=== PATIENT | male | born 1945 | race Caucasian/White ===

== ENCOUNTER → 2023-02-21 | Outpatient (CLI) | payer MEDICARE ==
[2023-02-21 09:51] LABS: African American GFR (CKD) 87 (>60 ml/min/1.73 sqM); Blood Urea Nitrogen 34 mg/dL (9-20); Non-African American GFR(CKD) 75 (>60 ml/min/1.73 sqM)
--- NOTE | 2023-02-21 10:59 | CT ---
EXAMINATION TYPE: CT urogram wo/w con DATE OF EXAM: 02/21/2023 COMPARISON: 01/21/1950 HISTORY: Microhematuria and frequent urination. CT DLP: 2550.2 mGycm CONTRAST: Performed and without and with IV Contrast, patient injected with 100ml mL of Isovue 300. CT Urography was performed with unenhanced followed by enhanced images of the kidneys, ureters and ur inary bladder. Delayed images were obtained. 3d reconstruction was performed at a separate work sta tion. FINDINGS: KIDNEYS/BLADDER: No hydronephrosis. No nephrolithiasis. No distinct solid renal mass. Simple cyst midpole left kidney measures 3.7 cm. Urinary bladder is not ideally distended however there does appe ar to be some wall thickening throughout which may reflect underlying cystitis. No distinct mass lesi on. LUNG BASES-: No visible nodule. No infiltrate. Mild basilar fibrotic change. LIVER/GB: No calcified gallstones. No space occupying hepatic lesion. Biliary tree is of normal ca liber. PANCREAS: No inflammation. No distinct mass. SPLEEN: No splenic enlargement. No lesion seen. ADRENALS: No nodule. No thickening. BOWEL: Normal appendix. Normal bowel caliber. No inflammation. GENITAL ORGANS: No gross abnormality. LYMPH NODES: No greater than 1cm abdominal or pelvic lymph nodes are appreciated. AORTA: No significant abnormality. OSSEOUS STRUCTURES: No significant abnormality is seen. OTHER: No significant additional abnormality is seen. IMPRESSION: 1. Correlate for urinary bladder cystitis. No distinct mass appreciated. Correlate clinically. 2. Simple cyst midpole left kidney. No solid renal lesions are seen. No hydronephrosis or nephrolithi asis present.
== END | disposition home or self-care (01) ==
LOC: RADCTMAIN 09:17
PROVIDERS: ATTEND Urology
DX: R31.1 Benign essential microscopic hematuria (principal); N28.1 Cyst of kidney, acquired
CPT/HCPCS: 82565; 84520; 74178; 36415; 74400; Q9967

== ENCOUNTER 2024-03-11 03:01 | Emergency (ER) | payer MEDICARE ==
[2024-03-11 03:12] VITALS: RESP 16; TEMP 96.1
--- NOTE | 2024-03-11 03:26 | ED ---
General Adult HPI - General Chief complaint: Urogenital Stated complaint: Bladder Issues Time Seen by Provider: 03/11/24 03:13 Source: patient, EMS, RN notes reviewed, old records reviewed Mode of arrival: EMS Limitations: no limitations - History of Present Illness Initial comments: 78-year-old male presenting with hematuria and difficulty urinating. Patient states he has had hematuria throughout the week after a bladder biopsy 6 days prior. Patient is on Eliquis which she states he takes for atrial fibrillation. He has been taking this medication this week. Patient has lower abdominal discomfort. No fever. No vomiting. - Related Data Home Medications Medication Instructions Recorded Confirmed Metoprolol Tartrate [Lopressor] 25 mg PO BID 01/08/16 01/12/16 Multivitamins, Thera [Multivitamin] 1 tab PO DAILY 01/08/16 01/12/16 [place]-3 Fatty Acids/Fish Oil [Fish 1 each PO DAILY 01/08/16 01/12/16 Oil 1,000 mg Softgel] Pantoprazole Sodium 40 mg PO DAILY 01/08/16 01/12/16 hydroCHLOROthiazide 12.5 mg PO DAILY 01/08/16 01/12/16 lisinopriL [Zestril] 10 mg PO DAILY 01/08/16 01/12/16 Allergies Allergy/AdvReac Type Severity Reaction Status Date / Time No Known Allergies Allergy Verified 03/11/24 03:12 Review of Systems ROS Statement: Those systems with pertinent positive or pertinent negative responses have been documented in the HPI. ROS Other: All systems not noted in ROS Statement are negative. Past Medical History Past Medical History: GERD/Reflux, Hypertension, Osteoarthritis (OA) Additional Past Medical History / Comment(s): HX OF HEPATITIS C WITH TREATMENT. , PT STATES HE WAS HAVING STOMACH CRAMPS AND NAUSEA BUT IT HAS SUBSIDED NOW. History of Any Multi-Drug Resistant Organisms: None Reported Past Surgical History: Joint Replacement, Orthopedic Surgery Additional Past Surgical History / Comment(s): LEFT TOTAL KNEE, RIGHT KNEE SURG, PITUITARY TUMOR (2014-), TWISTED BOWEL SURGERY (1996). Bladder biopsy 03/05/2024 Past Anesthesia/Blood Transfusion Reactions: No Reported Reaction, Motion Sickness Past Psychological History: No Psychological Hx Reported Past Alcohol Use History: None Reported Past Drug Use History: None Reported - Past Family History Father Family Medical History: Cancer Additional Family Medical History / Comment(s): COLON CANCER Brother(s) Family Medical History: Cancer Additional Family Medical History / Comment(s): STOMACH CANCER General Exam General appearance: alert, in no apparent distress Head exam: Present: atraumatic, normocephalic Eye exam: Present: normal appearance, PERRL ENT exam: Present: normal exam Neck exam: Present: normal inspection. Absent: tenderness, meningismus Respiratory exam: Present: normal lung sounds bilaterally. Absent: respiratory distress, wheezes Cardiovascular Exam: Present: regular rate, normal rhythm GI/Abdominal exam: Present: soft, distended, tenderness. Absent: guarding Neurological exam: Present: alert, oriented X3 Psychiatric exam: Present: normal affect, normal mood Skin exam: Present: warm, dry, intact Course Vital Signs 03/11/24 03:05 Temperature 96.1 F L Pulse Rate 63 Respiratory 16 Rate Blood Pressure 154/94 O2 Sat by Pulse 99 Oximetry Medical Decision Making - Medical Decision Making Was pt. sent in by a medical professional or institution (, [facility], [employer], urgent care, hospital, or fci...) When possible be specific @ -No Did you speak to anyone other than the patient for history (EMS, parent, family, police, friend...)? What history was obtained from this source @ -No Did you review nursing and triage notes (agree or disagree)? Why? @ -I reviewed and agree with nursing and triage notes Were old charts reviewed (outside hosp., previous admission, EMS record, old EK G, old radiological studies, urgent care reports/EKG's, fci records)? Report findings @ -No old charts were reviewed Differential Diagnosis urinary retention secondary to hematuria status post bladder biopsy. EKG interpreted by me (3pts min.). @ -As above X-rays interpreted by me (1pt min.). @ -None done CT interpreted by me (1pt min.). @ -None done U/S interpreted by me (1pt. min.). @ -None done What testing was considered but not performed or refused? (CT, X-rays, U/S, labs)? Why? @ -None What meds were considered but not given or refused? Why? @ -None Did you discuss the management of the patient with other professionals (professionals i.e. , [facility], [employer], lab, RT, psych nurse, clinical social work therapist, door to door selling distributor, teacher, business enterprise officer, disability case manager)? Give summary @ -No Was smoking cessation discussed for >3mins.? @ -No Was critical care preformed (if so, how long)? @ -No Were there social determinants of health that impacted care today? How? (Homelessness, low income, unemployed, alcoholism, drug addiction, transportation, low edu. Level, literacy, decrease access to med. care, senior living, rehab)? @ -No Was there de-escalation of care discussed even if they declined (Discuss DNR or withdrawal of care, Hospice)? DNR status @ -No What co-morbidities impacted this encounter? (DM, HTN, Smoking, COPD, CAD, Cancer, CVA, ARF, Chemo, Hep., AIDS, mental health diagnosis, sleep apnea, morbid obesity)? @Atrial fibrillation on Eliquis Was patient admitted / discharged? Hospital course, mention meds given and route, prescriptions, significant lab abnormalities, going to OR and other pertinent info. @ -78-year-old male with hematuria and urinary retention. Patton catheter was placed and significant amount of clots were irrigated from the bladder. Patient has complete resolution in lower abdominal discomfort. He states he will follow-up with urology on Tuesday which is tomorrow. He will hold his Eliquis for the next 24 hours. CBC unremarkable Undiagnosed new problem with uncertain prognosis? @ -No Drug Therapy requiring intensive monitoring for toxicity (Heparin, Nitro, Insulin, Cardizem)? @ -No Were any procedures done? @ -No Diagnosis/symptom? @ -Urinary retention secondary to hematuria Acute, or Chronic, or Acute on Chronic? @ -Acute Uncomplicated (without systemic symptoms) or Complicated (systemic symptoms)? @ -Default Side effects of treatment? @ -No Exacerbation, Progression, or Severe Exacerbation? @ -No Poses a threat to life or bodily function? How? (Chest pain, [place], [place], pneumonia, PE, COPD, DKA, ARF, appy, cholecystitis, CVA, Diverticulitis, Homicidal, Suicidal, threat to staff... and all critical care pts) @ -No - Lab Data Result diagrams: 03/11/24 03:56 03/11/24 03:56 Lab Results 03/11/24 03/11/24 03/11/24 Range/Units 03:56 03:56 03:56 WBC 6.7 (3.8-10.6) k/uL RBC 4.57 (4.30-5.90) m/uL Hgb 14.2 (13.0-17.5) gm/dL Hct 43.3 (39.0-53.0) % MCV 94.6 (80.0-100.0) fL MCH 31.1 (25.0-35.0) pg MCHC 32.9 (31.0-37.0) g/dL RDW 12.5 (11.5-15.5) % Plt Count 159 (150-450) k/uL MPV 9.2 Neutrophils % 68 % Lymphocytes % 19 % Monocytes % 8 % Eosinophils % 3 % Basophils % 1 % Neutrophils # 4.5 (1.3-7.7) k/uL Lymphocytes # 1.3 (1.0-4.8) k/uL Monocytes # 0.5 (0-1.0) k/uL Eosinophils # 0.2 (0-0.7) k/uL Basophils # 0.0 (0-0.2) k/uL PT 11.7 (10.0-12.5) sec INR 1.1 (<1.2) APTT 26.5 (22.0-30.0) sec Sodium 137 (137-145) mmol/L Potassium 4.1 (3.5-5.1) mmol/L Chloride 105 (98-107) mmol/L Carbon Dioxide 23 (22-30) mmol/L Anion Gap 9 mmol/L BUN 36 H (9-20) mg/dL Creatinine 0.98 (0.66-1.25) mg/dL Est GFR (CKD-EPI)AfAm 85 (>60 ml/min/1.73 sqM) Est GFR (CKD-EPI)NonAf 73 (>60 ml/min/1.73 sqM) Glucose 130 H (74-99) mg/dL Calcium 9.5 (8.4-10.2) mg/dL Total Bilirubin 0.7 (0.2-1.3) mg/dL AST 35 (17-59) U/L ALT 22 (4-49) U/L Alkaline Phosphatase 78 (38-126) U/L Total Protein 6.7 (6.3-8.2) g/dL Albumin 4.3 (3.5-5.0) g/dL Disposition Clinical Impression: Gross hematuria, Acute retention of urine Disposition: HOME SELF-CARE Condition: Good Instructions (If sedation given, give patient instructions): Urinary Retention in Men (ED), Hematuria (ED) Is patient prescribed a controlled substance at d/c from ED?: No Referrals: Alberto Herbert MD [Primary Care Provider] - 1-2 days Will Ruiz MD [STAFF PHYSICIAN] - 1-2 days Time of Disposition: 04:10
[2024-03-11 04:04] LABS: Basophils % (A) 1 %; Eosinophils # (A) 0.2 k/uL (0-0.7); Eosinophils % (A) 3 %; HCT 43.3 % (39.0-53.0); HGB 14.2 gm/dL (13.0-17.5); Lymphocytes # (A) 1.3 k/uL (1.0-4.8); Lymphocytes % (A) 19 %; MCH 31.1 pg (25.0-35.0); MCHC 32.9 g/dL (31.0-37.0); MCV 94.6 fL (80.0-100.0); Mean Platelet Volume 9.2; Monocytes # (A) 0.5 k/uL (0-1.0); Monocytes % (A) 8 %; Neutrophils # (A) 4.5 k/uL (1.3-7.7); Neutrophils % (A) 68 %; Platelet Count 159 k/uL (150-450); RBC 4.57 m/uL (4.30-5.90); RDW 12.5 % (11.5-15.5); WBC 6.7 k/uL (3.8-10.6)
[2024-03-11 04:13] LABS: ALT 22 U/L (4-49); AST 35 U/L (17-59); African American GFR (CKD) 85 (>60 ml/min/1.73 sqM); Albumin 4.3 g/dL (3.5-5.0); Alkaline Phosphatase 78 U/L (38-126); Anion Gap 9 mmol/L; Blood Urea Nitrogen 36 mg/dL (9-20); Calcium 9.5 mg/dL (8.4-10.2); Carbon Dioxide 23 mmol/L (22-30); Chloride 105 mmol/L (98-107); Glucose 130 mg/dL (74-99); Non-African American GFR(CKD) 73 (>60 ml/min/1.73 sqM); Potassium 4.1 mmol/L (3.5-5.1); Sodium 137 mmol/L (137-145); Total Bilirubin 0.7 mg/dL (0.2-1.3); Total Protein 6.7 g/dL (6.3-8.2)
[2024-03-11 04:23] LABS: INR 1.1 (<1.2); Partial Thromboplastin Time 26.5 sec (22.0-30.0); Prothrombin Time 11.7 sec (10.0-12.5)
[2024-03-11 05:30] VITALS: BP 143/86; PULSE 62
== END 2024-03-11 05:30 | disposition home or self-care (01) ==
LOC: EC 03:01
DX: R31.0 Gross hematuria (principal); R33.9 Retention of urine, unspecified
CPT/HCPCS: 36415; 51702; 80053; 85025; 85610; 85730; 99283

== ENCOUNTER 2024-03-11 12:18 | Emergency (ER) | payer MEDICARE ==
--- NOTE | 2024-03-11 13:44 | ED ---
Male Urogenital HPI - General Chief complaint: Urogenital Stated complaint: Cath issue recheck Time Seen by Provider: 03/11/24 12:33 Source: patient, RN notes reviewed, old records reviewed Mode of arrival: ambulatory Limitations: no limitations - History of Present Illness Initial comments: This is an 78 male to the ED fpr complaints of inability to pee feeling like he has to pee if your amount of blood in the urine here in the emergency department patient does take a blood thinner but has been off it since his prior urology and bladder scope procedure. Patient has had bleeding since Patton placement last night which she had placed due to urinary retention and blood clots and has had persistent bleeding today with pain and field being the urge of urination today. MD Complaint: dysuria (Area) -: days(s) Location: penis Radiation: none Severity: moderate Severity scale (1-10): 4 Consistency: constant Improves with: none Worsens with: none Reports: urinary retention, blood in urine - Related Data Home Medications Medication Instructions Recorded Confirmed Metoprolol Tartrate [Lopressor] 25 mg PO BID 01/08/16 01/12/16 Multivitamins, Thera [Multivitamin] 1 tab PO DAILY 01/08/16 01/12/16 [place]-3 Fatty Acids/Fish Oil [Fish 1 each PO DAILY 01/08/16 01/12/16 Oil 1,000 mg Softgel] Pantoprazole Sodium 40 mg PO DAILY 01/08/16 01/12/16 hydroCHLOROthiazide 12.5 mg PO DAILY 01/08/16 01/12/16 lisinopriL [Zestril] 10 mg PO DAILY 01/08/16 01/12/16 Allergies Allergy/AdvReac Type Severity Reaction Status Date / Time No Known Allergies Allergy Verified 03/11/24 03:12 Review of Systems ROS Statement: Those systems with pertinent positive or pertinent negative responses have been documented in the HPI. ROS Other: All systems not noted in ROS Statement are negative. Past Medical History Past Medical History: GERD/Reflux, Hypertension, Osteoarthritis (OA) Additional Past Medical History / Comment(s): HX OF HEPATITIS C WITH TREATMENT. , PT STATES HE WAS HAVING STOMACH CRAMPS AND NAUSEA BUT IT HAS SUBSIDED NOW. History of Any Multi-Drug Resistant Organisms: None Reported Past Surgical History: Joint Replacement, Orthopedic Surgery Additional Past Surgical History / Comment(s): LEFT TOTAL KNEE, RIGHT KNEE SURG, PITUITARY TUMOR (2014-), TWISTED BOWEL SURGERY (1996). Bladder biopsy 03/05/2024 Past Anesthesia/Blood Transfusion Reactions: No Reported Reaction, Motion Sickness Past Psychological History: No Psychological Hx Reported Past Alcohol Use History: None Reported Past Drug Use History: None Reported - Past Family History Father Family Medical History: Cancer Additional Family Medical History / Comment(s): COLON CANCER Brother(s) Family Medical History: Cancer Additional Family Medical History / Comment(s): STOMACH CANCER General Exam Limitations: no limitations General appearance: alert, in no apparent distress Head exam: Present: atraumatic, normocephalic, normal inspection Eye exam: Present: normal appearance, PERRL, EOMI. Absent: scleral icterus, conjunctival injection, periorbital swelling ENT exam: Present: normal exam, mucous membranes moist Neck exam: Present: normal inspection. Absent: tenderness, meningismus, lymphadenopathy Respiratory exam: Present: normal lung sounds bilaterally. Absent: respiratory distress, wheezes, rales, rhonchi, stridor Cardiovascular Exam: Present: regular rate, normal rhythm, normal heart sounds. Absent: systolic murmur, diastolic murmur, rubs, gallop, clicks GI/Abdominal exam: Present: soft, normal bowel sounds. Absent: distended, tenderness, guarding, rebound, rigid Extremities exam: Present: normal inspection, full ROM, normal capillary refill. Absent: tenderness, pedal edema, joint swelling, calf tenderness Back exam: Present: normal inspection Neurological exam: Present: alert, oriented X3, CN II-XII intact Psychiatric exam: Present: normal affect, normal mood Skin exam: Present: warm, dry, intact, normal color. Absent: rash Course Vital Signs 03/11/24 03/11/24 12:29 13:56 Temperature 97.6 F 98.0 F Pulse Rate 80 76 Respiratory 16 18 Rate Blood Pressure 138/81 128/78 O2 Sat by Pulse 97 98 Oximetry - Reevaluation(s) Reevaluation #1: 03/11/24 13:39 medical record is reviewed Reevaluation #2: 03/11/24 13:42 symptoms resolved Reevaluation #3: 03/11/24 13:42 patient informed of results and questions answered Reevaluation #4: Was pt. sent in by a medical professional or institution ([facility], [employer]OMATIC [employer]ULCAN[employer]ING OPERATOR, urgent care, hospital, or detention...) When possible be specific @ -no Did you speak to anyone other than the patient for history (EMS, parent, family, police, friend...)? What history was obtained from this source @ -no Did you review nursing and triage notes (agree or disagree)? Why? @ -agree Are old charts reviewed (outside hosp., previous admission, EMS record, old EKG, old radiological studies, urgent care reports/EKG's, detention records)? Report findings @ -yes Differential Diagnosis (chest pain, altered mental status, abdominal pain women, abdominal pain men, vaginal bleeding, weakness, fever, dyspnea, syncope, headache, dizziness, GI bleed, back pain, seizure, CVA, palpatations, mental health, musculoskeletal)? @ -prior EKG interpreted by me (3pts min.). @ -on X-rays interpreted by me (1pt min.). @ -no CT interpreted by me (1pt min.). @ -no U/S interpreted by me (1pt. min.). @ -no What testing was considered but not performed or refused? (CT, X-rays, U/S, labs)? Why? @ -none What meds were considered but not given or refused? Why? @ -none Did you discuss the management of the patient with other professionals (professionals i.e. [facility], AUTOMATIC [employer]ING OPERATOR, lab, RT, psych nurse, social media strategist, technical aide, teacher, staff electronic warfare officer, onsite case manager)? Give summary @ -no Was smoking cessation discussed for >3mins.? @ -no Was critical care preformed (if so, how long)? @ -no Were there social determinants of health that impacted care today? How? (Homelessness, low income, unemployed, alcoholism, drug addiction, transportation, low edu. Level, literacy, decrease access to med. care, fpc, rehab)? @ -none Was there de-escalation of care discussed even if they declined (Discuss DNR or withdrawal of care, Hospice)? DNR status @ -no What co-morbidities impacted this encounter? (DM, HTN, Smoking, COPD, CAD, C ancer, CVA, ARF, Chemo, Hep., AIDS, mental health diagnosis, sleep apnea, morbid obesity)? @ -none Was patient admitted / discharged? Hospital course, mention meds given and route, prescriptions, significant lab abnormalities, going to OR and other pertinent info. @ - 78 male to the ER for acute urinary retention with hematuria Patton catheter placed yesterday this was a all provoked by a bladder surgery and evaluation by urology, patient had Patton catheter placed yesterday blood in the urine today. Patient's Patton is flushed cleaned and repositioned here in the emergency department patient feels well can be discharged home Undiagnosed new problem with uncertain prognosis? @ -no Drug Therapy requiring intensive monitoring for toxicity (Heparin, Nitro, Insulin, Cardizem)? @ -no Were any procedures done? @ -no Diagnosis/symptom? @ -Urinary retention and hematuria discharged Acute, or Chronic, or Acute on Chronic? @ -Acute Uncomplicated (without systemic symptoms) or Complicated (systemic symptoms)? @ -Complicated Side effects of treatment? @ -no Exacerbation, Progression, or Severe Exacerbation? @ -exacerbation Poses a threat to life or bodily function? How? (Chest pain, [place], [place], pneumonia, PE, COPD, DKA, ARF, appy, cholecystitis, CVA, Diverticulitis, Homicidal, Suicidal, threat to staff... and all critical care pts) @ -yes extremise of age Procedures - Catheter Insertion (Urinary) Indications: replaced: fell out/removed/no longer functioning, monitor urine output, to alleviate urinary retention Prophylactic Antibiotics Given: No Bladder Scan/US before Catheterization: Yes (250) Preparation: Povidone-Iodine Type of Catheter Inserted: Patton Catheter Balloon Size (mLs): 10 Topical Anesthesia Used: No Results: successfully catheterized-immediate flow Patient Tolerated Procedure: well Complications: bloody urine Medical Decision Making - Medical Decision Making 78 male to the ER for acute urinary retention with hematuria Patton catheter placed yesterday this was a all provoked by a bladder surgery and evaluation by urology, patient had Patton catheter placed yesterday blood in the urine today. Patient's Patton is flushed cleaned and repositioned here in the emergency department patient feels well can be discharged home Disposition Clinical Impression: Gross hematuria, Acute retention of urine, Patton catheter in place Disposition: HOME SELF-CARE Instructions (If sedation given, give patient instructions): Patton Catheter Placement and Care (ED), Hematuria (ED), How to Change a Catheter Drainage Bag (DC) Is patient prescribed a controlled substance at d/c from ED?: No Referrals: Alberto Herbert MD [Primary Care Provider] - 1-2 days Time of Disposition: 13:30
[2024-03-11 13:57] VITALS: BP 128/78; PULSE 76; RESP 18; TEMP 98
== END 2024-03-11 13:58 | disposition home or self-care (01) ==
LOC: EC 12:18
DX: T83.098A Other mechanical complication of other urinary catheter, initial encounter (principal)
CPT/HCPCS: 51702; 51798; 99284